=== PATIENT | female | born 1990 | race American Indian/Alaskan Native ===

== ENCOUNTER 2022-04-03 16:43 | Emergency (ER) | payer MEDICARE ==
[~2022-04-03] VITALS: Ht 165.1 cm; Wt 90.7 kg
[2022-04-03] MEDS ORDERED: ONDA4ODT MM (17:16)
[2022-04-03] MEDS ORDERED: BENZ100A PO (17:16)
== END 2022-04-03 17:18 | disposition home or self-care (01) ==
LOC: ER 16:43
DX: J06.9 Acute upper respiratory infection, unspecified (principal); Z88.0 Allergy status to penicillin; Z91.013 Allergy to seafood; Z91.09 Other allergy status, other than to drugs and biological substances
CPT/HCPCS: 99282

== ENCOUNTER 2022-05-16 17:22 | Emergency (ER) | payer MEDICARE ==
[~2022-05-16] VITALS: Ht 165.1 cm; Wt 88.5 kg
[~2022-05-16 17:22] MED LIST: BENZ100A PO; ONDA4ODT MM; Reglan10 MG PO
[2022-05-16] MEDS ORDERED: Cleocin HCl150 MG PO (18:19)
[2022-05-16] MEDS ORDERED: IBUP800 PO (18:19)
[2022-05-16] MEDS ORDERED: Reglan10 MG PO (18:19)
== END 2022-05-16 18:30 | disposition home or self-care (01) ==
LOC: ER 17:22
DX: K04.7 Periapical abscess without sinus (principal); Z88.0 Allergy status to penicillin; Z91.013 Allergy to seafood; Z91.09 Other allergy status, other than to drugs and biological substances; Z79.899 Other long term (current) drug therapy
CPT/HCPCS: A9270; J1885

== ENCOUNTER 2022-05-30 14:25 | Emergency (ER) | payer MEDICARE ==
[~2022-05-30] VITALS: Ht 162.6 cm; Wt 111.6 kg
[~2022-05-30 14:25] MED LIST changes: +Atarax10 MG PO; +BUSPIRONE HCL10 M6 PO; +Benztropine Me0.5 MG PO; +Cleocin HCl150 MG PO; +ESZOPICLONE1 MG PO; +IBUP800 PO; +LATUDA PO; +METO5A PO; +PROP10 PO; +Prochlorperazin10 MG PO
== END 2022-05-30 16:31 | disposition home or self-care (01) ==
LOC: ER 14:25
DX: K08.89 Other specified disorders of teeth and supporting structures (principal); Z87.891 Personal history of nicotine dependence; Z88.0 Allergy status to penicillin; Z88.8 Allergy status to other drugs, medicaments and biological substances; Z91.013 Allergy to seafood; Z79.899 Other long term (current) drug therapy
CPT/HCPCS: A9270